=== PATIENT | female | born 1980 | race African-American/Black ===

== ENCOUNTER 2016-12-03 07:56 | Emergency (ER) | payer OTHER ==
[~2016-12-03] VITALS: Ht 165.1 cm; Wt 88.6 kg
[2016-12-03 09:21] VITALS: BP 152/95
[2016-12-03] MEDS ORDERED: HYDROCODONE/ACETAMINOPHEN 5-325 MG TABLET PO ONE (10:30)
[2016-12-03] MEDS ORDERED: LIDOCAINE HCL 5% TRANSDERMAL PATCH TD ONE (10:30)
== END 2016-12-03 11:53 | disposition home or self-care (01) ==
LOC: EMS 07:57
DX: M54.2 Cervicalgia (principal); M25.511 Pain in right shoulder; R03.0 Elevated blood-pressure reading, without diagnosis of hypertension
CPT/HCPCS: 99283